=== PATIENT | female | born 1990 | race Caucasian/White ===

== ENCOUNTER 2019-11-29 06:46 | Outpatient (CLI) | payer OTHER | END 2019-11-29 23:59 | disposition home or self-care (01) | LOC: CFH 06:46 | PROVIDERS: ATTEND Surgery Vascular Surgery | DX: N63.10 Unspecified lump in the right breast, unspecified quadrant (principal); R22.9 Localized swelling, mass and lump, unspecified | CPT/HCPCS: 76642 ==

== ENCOUNTER 2020-04-27 03:19 | Inpatient (IN) | payer OTHER ==
[~2020-04-27] VITALS: Ht 167.6 cm; Wt 87.3 kg
[2020-04-27 03:25] VITALS: BP 133/79
[2020-04-27] MEDS ORDERED: TERBUTALINE 1 MG/ML, 1ML SQ PRN (05:00)
[2020-04-27] MEDS ORDERED: FENTANYL PF 100 MCG/2ML IV PRN (05:00)
[2020-04-27] MEDS ORDERED: OXYTOCIN 30U/ 0.9% NaCL 500ML 500 ML IV ONE (05:00)
[2020-04-27] MEDS ORDERED: ALUMINUM/MAG/SIMETHICONE 30 ML UDC PO PRN (05:00)
[2020-04-27] MEDS ORDERED: SODIUM CITRATE/CITRIC ACID 30 ML UDC PO PRN (05:00)
[2020-04-27] MEDS ORDERED: SODIUM CHLORIDE FLUSH 10ML SYR IVF PRN (05:00)
[2020-04-27] MEDS ORDERED: METOCLOPRAMIDE 5 MG/ML, 2ML IVPush PRN (05:00)
[2020-04-27] MEDS ORDERED: CALCIUM CARBONATE 500 MG TAB.CHEW PO PRN (05:00)
[2020-04-27] MEDS ORDERED: FENTANYL/BUPIV./NS/PF 250 ML EPIDCONT SCH (05:00)
[2020-04-27] MEDS ORDERED: TERBUTALINE 1 MG/ML, 1ML IVPush PRN (05:00)
[2020-04-27] MEDS ORDERED: ONDANSETRON 2MG/ML, 2ML IVPush PRN (05:00)
[2020-04-27] MEDS ORDERED: FENTANYL PF 100 MCG/2ML IVPush PRN (05:00)
[2020-04-27 05:03] LABS: BASOPHILS % (AUTO) 1 % (0-1); EOSINOPHILS % (AUTO) 1 % (1-7); LYMPHOCYTES % (AUTO) 26 % (22-44); MEAN CORPUSCULAR HEMOGLOBIN 30.3 pg (27.0-34.8); MEAN CORPUSCULAR HGB CONC 33.6 g/dL (32.4-35.8); MEAN PLATELET VOLUME 8.2 fL (7.4-10.4); MONOCYTES % (AUTO) 5 % (2-9); NEUTROPHILS % (AUTO) 67 % (42-75); PLATELET COUNT 222 x10^3/uL (130-400); RED BLOOD COUNT 4.28 x10^6/uL (3.82-5.3); RED CELL DISTRIBUTION WIDTH 13.9 % (9.6-15.2)
[2020-04-27 05:08] LABS: MD NO
[2020-04-27] MEDS ORDERED: LIDOCAINE 1%, 20ML ONE (05:50)
[2020-04-27] MEDS ORDERED: MISOPROSTOL 200 MCG TABLET ONE (05:51)
[2020-04-27] MEDS ORDERED: OXYTOCIN 30U/ 0.9% NaCL 500ML 500 ML ONE (05:51)
[2020-04-27] MEDS ORDERED: NEWBORN KIT ONE (07:28)
[2020-04-27] MEDS: LACTATED RINGERS 1,000 ML IV SCH ×2 (18:45→23:42)
[2020-04-27 19:25] VITALS: BP 123/83
[2020-04-27] MEDS: D5%-LACTATED RINGERS 1,000 ML IV SCH (19:53)
[2020-04-27] MEDS ORDERED: FENTANYL PF 100 MCG/2ML ONE (23:28)
[2020-04-28] MEDS ORDERED: FENTANYL/BUPIV./NS/PF 250 ML EPIDCONT ONE (00:23)
[2020-04-28] MEDS ORDERED: BUPIVACAINE 0.25% ONE (00:23)
[2020-04-28] MEDS ORDERED: LACTATED RINGERS 1,000 ML IVBOLUS PRN (00:30)
[2020-04-28] MEDS ORDERED: FENTANYL/BUPIV./NS/PF 250 ML EPIDCONT SCH (00:30)
[2020-04-28] MEDS ORDERED: NALOXONE 0.4 MG/ML, 1ML IVPush PRN (00:30)
[2020-04-28] MEDS ORDERED: EPHEDRINE 50 MG/ML, 1ML IVPush PRN (00:30)
[2020-04-28] MEDS: D5%-LACTATED RINGERS 1,000 ML IV SCH (03:37)
[2020-04-28] MEDS ORDERED: MISOPROSTOL 200 MCG TABLET PR PRN (07:30)
[2020-04-28] MEDS ORDERED: METOCLOPRAMIDE 5 MG/ML, 2ML IV PRN (07:30)
[2020-04-28] MEDS ORDERED: BISACODYL 10 MG SUPP PR PRN (07:30)
[2020-04-28] MEDS ORDERED: DOCUSATE 100 MG CAPSULE PO PRN (07:30)
[2020-04-28] MEDS ORDERED: ONDANSETRON 2MG/ML, 2ML IV PRN (07:30)
[2020-04-28] MEDS ORDERED: SIMETHICONE 80 MG CHEW TAB PO PRN (07:30)
[2020-04-28] MEDS ORDERED: OXYcodone IR 5MG TABLET PO PRN (07:30)
[2020-04-28] MEDS ORDERED: IBUPROFEN 800 MG TABLET PO PRN (07:30)
[2020-04-28] MEDS ORDERED: ACETAMINOPHEN 325 MG TABLET PO PRN (07:30)
[2020-04-28] MEDS ORDERED: METHYLERGONOVINE 0.2 MG/ML IM PRN (07:30)
[2020-04-28] MEDS ORDERED: CARBOPROST TROMETHAMINE 250 MCG/ML, 1ML IM PRN (07:30)
[2020-04-28] MEDS ORDERED: GLYCERIN ADULT SUPP PR PRN (07:30)
[2020-04-28 09:00] VITALS: BP 119/79
[2020-04-28] MEDS ORDERED: PRENATAL VIT/IRON/FA 1 EACH TABLET PO SCH (09:00)
[2020-04-28] MEDS: OXYcodone/APAP 5/325MG TABLET PO PRN ×3 (10:49→23:02)
[2020-04-28] MEDS: IBUPROFEN 600 MG TABLET PO PRN ×3 (10:49→23:02)
[2020-04-28 11:13] VITALS: BP_SYST 108; BP_DIAS 71; BP_DIAS 73
[2020-04-28 15:30] VITALS: BP 110/77
[2020-04-28] MEDS: LACTATED RINGERS 1,000 ML IV SCH (16:30)
[2020-04-28] MEDS: OXYTOCIN 30U/ 0.9% NaCL 500ML 500 ML IV SCH (17:30)
[2020-04-28 19:16] LABS: BASOPHILS % (AUTO) 0 % (0-1); EOSINOPHILS % (AUTO) 1 % (1-7); LYMPHOCYTES % (AUTO) 17 % (22-44); MEAN CORPUSCULAR HEMOGLOBIN 30.5 pg (27.0-34.8); MEAN CORPUSCULAR HGB CONC 34.4 g/dL (32.4-35.8); MONOCYTES % (AUTO) 7 % (2-9); NEUTROPHILS % (AUTO) 75 % (42-75); PLATELET COUNT 190 x10^3/uL (130-400); RED BLOOD COUNT 3.73 x10^6/uL (3.82-5.3); RED CELL DISTRIBUTION WIDTH 13.6 % (9.6-15.2)
[2020-04-28 19:28] LABS: MD NO
[2020-04-28 20:00] VITALS: BP 117/69
[2020-04-29] MEDS: LACTATED RINGERS 1,000 ML IV SCH (00:30)
[2020-04-29 03:30] VITALS: BP 124/84
[2020-04-29] MEDS: OXYTOCIN 30U/ 0.9% NaCL 500ML 500 ML IV SCH (03:30)
[2020-04-29] MEDS: OXYcodone/APAP 5/325MG TABLET PO PRN ×2 (03:36→10:03)
[2020-04-29] MEDS ORDERED: MEASLES,MUMPS&RUBELLA VACC/PF 0.5 ML SQ-VACC ONE (05:05)
[2020-04-29] MEDS ORDERED: IBUP-1222 PO (06:47)
[2020-04-29] MEDS ORDERED: OXYC-302 PO (06:47)
[2020-04-29] MEDS: IBUPROFEN 600 MG TABLET PO PRN ×2 (07:09→13:40)
[2020-04-29 07:20] VITALS: BP 132/91
== END 2020-04-29 14:08 | disposition home or self-care (01) | DRG 807 ==
LOC: LDOP 03:19 → LDIP 03:59 → 2NW 04-28 08:34
PROVIDERS: ADMIT Obstetrics & Gynecology Maternal & Fetal Medicine; ATTEND Obstetrics & Gynecology Maternal & Fetal Medicine
PROC: 10E0XZZ Delivery of Products of Conception, External Approach (ICD-10-PCS; principal; 2020-04-28)
PROC: 0UQMXZZ Repair Vulva, External Approach (ICD-10-PCS; 2020-04-28)
PROC: 3E0R3BZ Introduction of Anesthetic Agent into Spinal Canal, Percutaneous Approach (ICD-10-PCS; 2020-04-28)
PROC: 00HU33Z Insertion of Infusion Device into Spinal Canal, Percutaneous Approach (ICD-10-PCS; 2020-04-28)
DX: O42.02 Full-term premature rupture of membranes, onset of labor within 24 hours of rupture (principal); Z37.0 Single live birth; Z20.828 Contact with and (suspected) exposure to other viral communicable diseases; O70.0 First degree perineal laceration during delivery; Z3A.40 40 weeks gestation of pregnancy
CPT/HCPCS: 36415; J7121; 85025; 86592; 86850; 86900; 87635; 89060; G0378; J3010; J2590; J7120; Q0114